=== PATIENT | female | born 1965 | race American Indian/Alaskan Native ===

== ENCOUNTER 2022-09-01 11:56 | Day surgery (SDC) | payer OTHER ==
[~2022-09-01] VITALS: Ht 160 cm; Wt 84.8 kg
[~2022-09-01 11:56] MED LIST: AMIT10; ASCO500 PO; BUSP5; CENTRUM SILVER1 EAC3 PO; CEPH500 PO; CLON1; DOCU100 PO; ESCI20 PO; ESCI5; FISH1000 PO; HYDACE5 PO; HYDCHL12.5 PO; LISI20 PO; Milk Thistle500 MG; OMEP40CA12; OXYB5 PO; SILVADENE; SULTRIDS PO; TOLT4 PO; VITA25000
[2022-09-01] MEDS ORDERED: ATOR10 (13:19)
== END 2022-09-01 15:43 | disposition home or self-care (01) ==
LOC: ORSCSDS 11:56
PROVIDERS: Internal Medicine Gastroenterology
PROC: 0DBL8ZX Excision of Transverse Colon, Via Natural or Artificial Opening Endoscopic, Diagnostic (ICD-10-PCS; principal; 2022-09-01 13:30)
PROC: 0DBN8ZX Excision of Sigmoid Colon, Via Natural or Artificial Opening Endoscopic, Diagnostic (ICD-10-PCS; principal; 2022-09-01 13:30)
DX: K59.00 Constipation, unspecified (principal); Z86.010 Personal history of colon polyps; Z83.71 Family history of colonic polyps; D12.3 Benign neoplasm of transverse colon; D12.5 Benign neoplasm of sigmoid colon; K57.30 Diverticulosis of large intestine without perforation or abscess without bleeding; K64.8 Other hemorrhoids; I10 Essential (primary) hypertension; E66.9 Obesity, unspecified; Z68.34 Body mass index [BMI] 34.0-34.9, adult; Z87.891 Personal history of nicotine dependence; Z79.899 Other long term (current) drug therapy
CPT/HCPCS: 88305; J0330; J0461; J2405; J2704; J7120